=== PATIENT | female | born 2000 | race Caucasian/White ===

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

== ENCOUNTER → 2021-12-30 | Outpatient (CLI) | payer OTHER | LOC: M WHC 08:10 | PROVIDERS: ATTEND Family Medicine | DX: R10.2 Pelvic and perineal pain (principal) ==

== ENCOUNTER → 2022-08-21 | Outpatient (CLI) | payer BC ==
[2022-08-21 12:50] LABS: ALBUMIN 4.3 G/DL (3.2-5.2); ALKALINE PHOSPHATASE 95 U/L (46-116); ALT/SGPT 13 U/L (7.0-40); AST/SGOT 15 U/L (<34); BILIRUBIN,TOTAL 1.1 MG/DL (0.3-1.2); BLOOD UREA NITROGEN 11 MG/DL (9-23); CALCIUM LEVEL 9.2 MG/DL (8.5-10.1); CARBON DIOXIDE LEVEL 26 MMOL/L (20-31); CHLORIDE LEVEL 106 MMOL/L (98-107); CREATININE FOR GFR 0.72 MG/DL (0.55-1.30); GLOMERULAR FILTRATION RATE > 60.0 (>60); GLUCOSE, FASTING 83 MG/DL (60-100); SODIUM LEVEL 138 MMOL/L (136-145); TOTAL PROTEIN 7.8 G/DL (5.7-8.2)
[2022-08-21 12:51] LABS: THYROID STIMULATING HORMONE 1.613 uIU/ML (0.55-4.78)
[2022-08-21 12:52] LABS: FREE T4 1.27 NG/DL (0.89-1.76); LUTEINIZING HORMONE 6.5 mIU/ML
[2022-08-24 18:07] LABS: INSULIN LEVEL 9.1 uIU/mL (2.6-24.9); TESTOSTERONE FREE (DIRECT) 1.2 pg/mL (0.0-4.2)
== END ==
LOC: M LAB 11:55
PROVIDERS: ATTEND Family Medicine
DX: L70.9 Acne, unspecified (principal)

== ENCOUNTER 2023-06-02 20:55 | Emergency (ER) | payer BC ==
[~2023-06-02] VITALS: Ht 160 cm; Wt 70.8 kg
[2023-06-02] MEDS: ACETAMINOPHEN 325 MG TAB PO ONE (21:36)
[2023-06-02 22:30] VITALS: O2SAT 97
[2023-06-02 23:19] VITALS: BP 123/76; TEMP 99.3
== END 2023-06-03 00:11 | disposition home or self-care (01) ==
LOC: M ED 20:55
DX: J10.1 Influenza due to other identified influenza virus with other respiratory manifestations (principal); Z20.822 Contact with and (suspected) exposure to COVID-19; F41.9 Anxiety disorder, unspecified; F32.A Depression, unspecified; Z88.2 Allergy status to sulfonamides